=== PATIENT | female | born 1945 | race Caucasian/White ===

== ENCOUNTER 2017-11-09 11:55 | Emergency (ER) | payer MEDICARE ==
[~2017-11-09] VITALS: Ht 165.1 cm; Wt 61.4 kg
[2017-11-09 12:06] VITALS: BP 135/68
[2017-11-09] MEDS ORDERED: DULO-31 PO (12:27)
[2017-11-09] MEDS ORDERED: BUPR300T54 PO (12:27)
== END 2017-11-09 13:05 | disposition home or self-care (01) ==
LOC: ER 11:56
DX: F32.9 Major depressive disorder, single episode, unspecified (principal); F41.9 Anxiety disorder, unspecified; Z76.0 Encounter for issue of repeat prescription; Z56.0 Unemployment, unspecified; Z79.899 Other long term (current) drug therapy
CPT/HCPCS: 99283

== ENCOUNTER 2018-04-30 10:47 | Emergency (ER) | payer MEDICARE ==
[~2018-04-30] VITALS: Ht 162.6 cm; Wt 59.6 kg
[~2018-04-30 10:47] MED LIST: BUPR300T54 PO; DULO-31 PO
--- NOTE | 2018-04-30 12:43 | NUR ---
sidney states that she is has been off her Florinef since November. pt provided list of pcp to obtain a pmd pt now states that she may have been to [facility] in november
[2018-04-30 12:59] VITALS: BP 122/59
== END 2018-04-30 13:01 | disposition home or self-care (01) ==
LOC: ER 10:47
DX: I95.9 Hypotension, unspecified (principal); Z56.0 Unemployment, unspecified; Z88.2 Allergy status to sulfonamides; Z79.899 Other long term (current) drug therapy
CPT/HCPCS: 99283

== ENCOUNTER 2019-05-15 22:45 | Emergency (ER) | payer MEDICARE ==
[~2019-05-15] VITALS: Ht 162.6 cm; Wt 59.1 kg
[~2019-05-15 22:45] MED LIST changes: +BUPR-344 PO; -BUPR300T54 PO
[2019-05-15 22:57] VITALS: BP 127/79
--- NOTE | 2019-05-16 00:05 | NUR ---
Genoveva Padilla PA-C is with the patient at this time.
[2019-05-16] MEDS ORDERED: HYDR-4383 PO (00:36)
== END 2019-05-16 00:45 | disposition home or self-care (01) ==
LOC: ER 22:46
DX: M25.532 Pain in left wrist (principal); Z56.0 Unemployment, unspecified; Z79.899 Other long term (current) drug therapy; Z88.2 Allergy status to sulfonamides; W11.XXXA Fall on and from ladder, initial encounter; Y93.89 Activity, other specified; Y92.89 Other specified places as the place of occurrence of the external cause; Y99.9 Unspecified external cause status
CPT/HCPCS: 29125; 73090; 73110; 99284